=== PATIENT | male | born 1950 | race Caucasian/White ===

== ENCOUNTER → 2020-01-20 | Outpatient (CLI) | payer MEDICARE ==
[2020-01-20 17:18] LABS: BF CLARITY TURBID; BF COLOR RED; BF MON % 90 %; BF PMN % 10 %; BF RBC COUNT 76500 /cmm (Not Established); BF SOURCE SYNOVIAL; BF WBC COUNT 150 /cmm (Not Established)
== END | disposition home or self-care (01) ==
LOC: SPEC 14:54
PROVIDERS: ATTEND Orthopaedic Surgery
DX: Z96.642 Presence of left artificial hip joint (principal)
CPT/HCPCS: 87071; 87075; 87102; 87116; 89050

== ENCOUNTER → 2020-02-01 | Outpatient (CLI) | payer MEDICARE ==
[2020-02-01 15:35] LABS: BF CLARITY TURBID; BF COLOR RED; BF SOURCE SYNOVIAL
[2020-02-01 15:36] LABS: BF MON % 85 %; BF PMN % 15 %
== END | disposition home or self-care (01) ==
LOC: SPEC 13:04
PROVIDERS: ATTEND Orthopaedic Surgery
DX: Z96.642 Presence of left artificial hip joint (principal)
CPT/HCPCS: 87071; 87075; 87102; 87116; 89050